=== PATIENT | female | born 1990 | race Caucasian/White ===

== ENCOUNTER 2018-04-18 20:38 | Emergency (ER) | payer OTHER ==
[~2018-04-18] VITALS: Ht 165.1 cm; Wt 61.2 kg
[~2018-04-18 20:38] MED LIST: ACETAMINOPHEN-1 EAC1 PO; AMOXICILLIN 50500 MG PO; CIPROFLOXACIN500 M1 PO; CORTISPORIN OTI10 M2 OTIC; ERYTHROMYCIN E3.5 G1 OPHTHALMIC; IBUPROFEN 800800 M1 PO; LORTAB 5 MG/5001 TA1 PO; NAPROSYN500 MG PO; NOHOMEMEDICATIONS; NORCO 5-325 TA1 EACH PO; PENICILLIN V P500 MG PO; PENICILLIN VK250 MG PO; PENICILLIN VK500 M1 PO; PYRIDIUM200 MG PO; TORADOL 10 MG T10 MG PO; TRAMADOL 50 MG50 MG PO; VICODIN 5-5001 EACH PO
[2018-04-18 22:03] VITALS: BP 120/67
== END 2018-04-18 22:04 | disposition home or self-care (01) ==
LOC: M.ERS 20:38
DX: R51 Headache (principal); Z86.2 Personal history of diseases of the blood and blood-forming organs and certain disorders involving the immune mechanism; Z87.891 Personal history of nicotine dependence

== ENCOUNTER 2019-08-08 09:41 | Emergency (ER) | payer OTHER, MEDICAID ==
[~2019-08-08] VITALS: Ht 165.1 cm; Wt 61.7 kg
[2019-08-08 10:52] VITALS: BP 97/60
== END 2019-08-08 10:53 | disposition home or self-care (01) ==
LOC: M.ERS 09:41
DX: G43.909 Migraine, unspecified, not intractable, without status migrainosus (principal); Z87.891 Personal history of nicotine dependence; Z86.2 Personal history of diseases of the blood and blood-forming organs and certain disorders involving the immune mechanism